=== PATIENT | male | born 1930 | race Caucasian/White ===

== ENCOUNTER 2022-01-30 07:28 | Inpatient (IN) | payer MEDICARE, BC ==
[~2022-01-30] VITALS: Ht 162.6 cm; Wt 50.3 kg
--- NOTE | 2022-01-30 07:36 | NUR ---
Dr Ross at the bedside for MSE.
[2022-01-30] MEDS ORDERED: ASPIRIN 325 MG TABLET PO ONE (07:45)
[2022-01-30] MEDS ORDERED: ALBUTEROL SULFATE 2.5 MG/ 0.5 ML NEBU NEB ONE (08:00)
[2022-01-30] MEDS ORDERED: IPRATROPIUM BROMIDE 0.5 MG/2.5 ML NEBU NEB ONE (08:00)
[2022-01-30] MEDS ORDERED: ASPIRIN 325 MG TABLET ONE (08:08)
[2022-01-30] MEDS ORDERED: ASPI81TA31 PO (08:21)
[2022-01-30] MEDS ORDERED: CRAN425C6 PO (08:21)
[2022-01-30] MEDS ORDERED: NICO-671 TP (08:21)
[2022-01-30] MEDS ORDERED: FERR325T28 PO (08:21)
[2022-01-30] MEDS ORDERED: NITR0.4T SL (08:21)
[2022-01-30] MEDS ORDERED: INSU100V7 SQ (08:21)
[2022-01-30] MEDS ORDERED: POLY17PO4 PO (08:21)
[2022-01-30] MEDS ORDERED: TAMS-3 PO (08:21)
[2022-01-30] MEDS ORDERED: METO-356 PO (08:21)
[2022-01-30] MEDS ORDERED: NA P133E RC (08:21)
[2022-01-30] MEDS ORDERED: INSU100C SQ (08:21)
[2022-01-30] MEDS ORDERED: ALBU0.63 NEB (08:21)
[2022-01-30] MEDS ORDERED: ATOR80TA PO (08:21)
[2022-01-30] MEDS ORDERED: BUDE10.2 INH (08:21)
[2022-01-30] MEDS ORDERED: MAGN400O6 PO (08:21)
[2022-01-30] MEDS ORDERED: ACET-2154 PO (08:21)
[2022-01-30] MEDS ORDERED: MULT-619 PO (08:21)
[2022-01-30] MEDS ORDERED: METF-440 PO (08:21)
[2022-01-30] MEDS ORDERED: BISA10SU61 RC (08:21)
[2022-01-30] MEDS ORDERED: ESCI5TAB PO (08:21)
[2022-01-30] MEDS ORDERED: INSU100V39 SQ (08:21)
[2022-01-30 08:32] LABS: HEMATOCRIT 37.1 % (36.7-47.1); MEAN CORPUSCULAR VOLUME 84.2 fL (73.0-96.2); PLATELET COUNT (AUTO) 513 K/uL (152-348)
[2022-01-30] MEDS ORDERED: ALBUTEROL SULFATE 1.25 MG/3 ML NEBU ONE (08:32)
[2022-01-30] MEDS ORDERED: IPRATROPIUM BROMIDE 0.5 MG/2.5 ML NEBU ONE (08:33)
[2022-01-30] MEDS ORDERED: ALBUTEROL SULFATE 2.5 MG/3 ML NEBU ONE (08:35)
[2022-01-30 08:58] LABS: CARBON DIOXIDE 17 mmol/L (21-32); CHLORIDE 110 mmol/L (98-107); CREATININE 1.1 mg/dL (0.6-1.3); GLUCOSE 87 mg/dL (74-106); POTASSIUM 3.3 mmol/L (3.5-5.1); UREA NITROGEN, BLOOD 32 mg/dL (7-18)
[2022-01-30 09:10] LABS: ALANINE AMINOTRANSFERASE 20 U/L (16-63); ALKALINE PHOSPHATASE 62 U/L (50-136); ASPARTATE AMINOTRANSFERASE 12 U/L (15-37); BILIRUBIN,DIRECT 0.1 mg/dL (0.0-0.2); BILIRUBIN,TOTAL 0.3 mg/dL (0.2-1.0); TOTAL PROTEIN, SERUM 5.8 g/dL (6.4-8.2)
[2022-01-30] MEDS ORDERED: IOHEXOL 350 100 ML INFUS..BTL ONE (09:24)
[2022-01-30] MEDS ORDERED: AZITHROMYCIN IV 500 MG in IV DEXTROSE 5% 250 ML IV ONE (09:30)
[2022-01-30] MEDS ORDERED: CEFTRIAXONE 1 G in IV DEXTROSE 5% 50 ML IV ONE (09:30)
[2022-01-30] MEDS ORDERED: MAGNESIUM SULFATE/D5W 0 ML ONE (09:36)
[2022-01-30] MEDS ORDERED: AZITHROMYCIN 500MG/ D5W 250ML IVPB **ER PYXIS ONLY IV ONE (09:38)
--- NOTE | 2022-01-30 10:28 | NUR ---
Pt back from Ct, resting in bed, denies chest pain at this time.
[2022-01-30] MEDS ORDERED: CEFTRIAXONE /D5W 50ML IVPB **ER PYXIS IV ONE (10:54)
--- NOTE | 2022-01-30 12:00 | NUR ---
Dr Price spoke to Er for tele admit.
[2022-01-30 13:22] LABS: *BILIRUBIN,URIN NEGATIVE (NEGATIVE); *BLOOD, URINE 2+ (NEGATIVE); *CLARITY,URINE CLOUDY (CLEAR); *COLOR,URINE YELLOW (YELLOW); *KETONES,URINE TRACE (NEGATIVE); *UROBILINOGEN,URINE 0.2 E.U./dl (NORMAL); LEUKOCYTE ESTERASE ,URINE 3+ (NEGATIVE); NITRITE, URINE POSITIVE (NEGATIVE); PH,URINE 5.5 (5.0-8.0); UGLUCOSE NEGATIVE (NEGATIVE)
[2022-01-30 13:51] LABS: BACTERIA,URINE MANY /HPF (NONE SEEN); SQUAMOUS EPITHELIAL CELL,UR FEW /HPF (NONE SEEN); WBC,URINE TNTC /HPF (0-3)
[2022-01-30] MEDS ORDERED: ONDANSETRON 4 MG/2 ML VIAL IV PRN (18:45)
[2022-01-30] MEDS ORDERED: MAGNESIUM HYDROXIDE 30 ML LIQUID UDC PO SCH (18:45)
[2022-01-30] MEDS ORDERED: ALBUTEROL SULFATE 2.5 MG/ 0.5 ML NEBU NEB PRN ×2 (18:45→19:00)
[2022-01-30] MEDS ORDERED: ACETAMINOPHEN 325 MG TABLET PO PRN (18:45)
[2022-01-30] MEDS ORDERED: FLEET ENEMA 133 ML BOTTLE RC PRN (18:45)
[2022-01-30] MEDS ORDERED: MORPHINE SULFATE 2 MG/1 ML DISP.SYRIN IV PRN (18:45)
[2022-01-30] MEDS ORDERED: DEXTROSE 50% 50 ML DISP.SYRIN IV PRN (19:00)
[2022-01-30] MEDS ORDERED: IPRATROPIUM BROMIDE 0.5 MG/2.5 ML NEBU NEB PRN (19:00)
--- NOTE | 2022-01-30 19:05 | NUR ---
Change of shift report from Bruna BIRD
--- NOTE | 2022-01-30 20:40 | NUR ---
Spoke with [facility]EL[facility] charge nurse Argelia BIRD, patient will be transfered to room 316
--- NOTE | 2022-01-30 20:51 | NUR ---
Dr Paredes at bedside, MSE in progress
[2022-01-30] MEDS ORDERED: Medication Not On Formulary EA (Escitalopram Oxalate (Lexapro) 1 TAB) PO SCH (21:00)
--- NOTE | 2022-01-30 21:14 | NUR ---
called 3rd floor to give report, Josefina BIRD will call back
--- NOTE | 2022-01-30 21:25 | NUR ---
Report given to Josefina BIRD.
--- NOTE | 2022-01-30 21:57 | NUR ---
Pt. admitted to TELE rm 316, under care of Dr. Paredes Belongs List completed Josefina RN aware og pt arrival.
[2022-01-30 22:10] VITALS: BP 114/67
[2022-01-30] MEDS: methylPREDNISolone SOD SUCC 40 MG/ML VIAL IV SCH (22:40)
[2022-01-30] MEDS: DOCUSATE SODIUM 100 MG CAPSULE PO SCH (22:41)
[2022-01-30] MEDS: TAMSULOSIN HCL 0.4 MG CAP.SR.24H PO SCH (22:41)
[2022-01-30] MEDS: ESCITALOPRAM OXALATE 10 MG TABLET PO SCH (22:41)
[2022-01-30] MEDS: BLOOD SUGAR DIAGNOSTIC 1 EACH STRIP VI SCH (22:52)
[2022-01-30] MEDS ORDERED: INSULIN GLARGINE,HUM 300 UNITS/3 ML CARTRIDGE SQ ONE (22:52)
[2022-01-30] MEDS: INSULIN REGULAR, HUMAN 300 UNIT/3 ML VIAL SQ PRN (22:54)
[2022-01-30] MEDS: INSULIN GLARGINE,HUM 300 UNITS/3 ML CARTRIDGE SQ SCH (22:57)
[2022-01-31 04:30] VITALS: BP 127/64
--- NOTE | 2022-01-31 05:57 | NUR ---
Admitted to Tele, SR on monitor. No distress noted. IV site intact. Denies SOB or chest pain at this time. Able to make needs known. States that he ambulates with walker or uses a wheelchair at home. All needs attended to. Will endorse to day shift.
[2022-01-31] MEDS: PANTOPRAZOLE SODIUM 40 MG TABLET.DR PO SCH (06:23)
[2022-01-31] MEDS: methylPREDNISolone SOD SUCC 40 MG/ML VIAL IV SCH ×2 (06:24→16:33)
[2022-01-31] MEDS: BLOOD SUGAR DIAGNOSTIC 1 EACH STRIP VI SCH ×4 (06:32→20:28)
[2022-01-31 07:31] LABS: HEMATOCRIT 35.9 % (36.7-47.1); MEAN CORPUSCULAR HEMOGLOBIN 26.9 uug (23.8-33.4); MEAN CORPUSCULAR VOLUME 83.3 fL (73.0-96.2); PLATELET COUNT (AUTO) 466 K/uL (152-348)
[2022-01-31 07:35] LABS: IRON, SERUM 23 ug/dL (50-175)
[2022-01-31 07:44] LABS: ALANINE AMINOTRANSFERASE 26 U/L (16-63); ALKALINE PHOSPHATASE 80 U/L (50-136); ASPARTATE AMINOTRANSFERASE 18 U/L (15-37); BILIRUBIN,TOTAL 0.3 mg/dL (0.2-1.0); CARBON DIOXIDE 19 mmol/L (21-32); CHLORIDE 100 mmol/L (98-107); CHOLESTEROL 87 mg/dL (<200); CREATININE 1.4 mg/dL (0.6-1.3); GLUCOSE 212 mg/dL (74-106); HDL CHOLESTEROL 43 mg/dL (40-60); MAGNESIUM 1.8 mg/dL (1.8-2.4); PHOSPHOROUS 4.3 mg/dL (2.5-4.9); POTASSIUM 4.8 mmol/L (3.5-5.1); THYROID STIMULATING HORMONE 0.828 mIU/mL (0.358-3.740); TOTAL PROTEIN, SERUM 7.2 g/dL (6.4-8.2); TRIGLYCERIDES 69 MG/DL (30-150); UREA NITROGEN, BLOOD 39 mg/dL (7-18)
[2022-01-31] MEDS: MULTIVIT, IRON, MIN NO. 8, FA TABLET PO SCH (08:49)
[2022-01-31] MEDS: ASPIRIN 81 MG TAB.CHEW PO SCH (08:49)
[2022-01-31] MEDS: METOPROLOL SUCCINATE XL 25 MG TAB.SR.24H PO SCH (08:53)
[2022-01-31] MEDS: CEFTRIAXONE 1 G in IV DEXTROSE 5% 50 ML IV SCH (08:53)
[2022-01-31] MEDS: INSULIN REGULAR, HUMAN 300 UNIT/3 ML VIAL SQ PRN ×4 (08:55→20:34)
[2022-01-31] MEDS ORDERED: MULTIVITAMINS W MINERALS PO SCH (09:00)
[2022-01-31] MEDS: FLUTICASONE/VILANTEROL 1 EACH BLST.W.DEV INH SCH (09:59)
[2022-01-31 16:20] VITALS: BP 113/57
[2022-01-31 20:00] VITALS: BP 102/44
[2022-01-31] MEDS: TAMSULOSIN HCL 0.4 MG CAP.SR.24H PO SCH (20:29)
[2022-01-31] MEDS: DOCUSATE SODIUM 100 MG CAPSULE PO SCH (20:29)
[2022-01-31] MEDS: INSULIN GLARGINE,HUM 300 UNITS/3 ML CARTRIDGE SQ SCH (20:29)
[2022-01-31] MEDS: ESCITALOPRAM OXALATE 10 MG TABLET PO SCH (20:29)
[2022-02-01 04:00] VITALS: BP 102/48
[2022-02-01] MEDS: PANTOPRAZOLE SODIUM 40 MG TABLET.DR PO SCH (06:04)
--- NOTE | 2022-02-01 06:04 | NUR ---
PATIENT NPO SINCE MIDNIGHT ORDERED FOR CT SCAN THIS MORNING.
[2022-02-01] MEDS: BLOOD SUGAR DIAGNOSTIC 1 EACH STRIP VI SCH ×4 (06:28→20:31)
--- NOTE | 2022-02-01 08:23 | NUR ---
Patient NPO. Medications not administered via PO due to NPO status for CT Scan.
[2022-02-01] MEDS: MULTIVIT, IRON, MIN NO. 8, FA TABLET PO SCH (08:24)
[2022-02-01] MEDS: METOPROLOL SUCCINATE XL 25 MG TAB.SR.24H PO SCH (08:24)
[2022-02-01] MEDS: ASPIRIN 81 MG TAB.CHEW PO SCH (08:24)
[2022-02-01] MEDS: CEFTRIAXONE 1 G in IV DEXTROSE 5% 50 ML IV SCH (08:24)
[2022-02-01] MEDS: FLUTICASONE/VILANTEROL 1 EACH BLST.W.DEV INH SCH (08:25)
[2022-02-01] MEDS: methylPREDNISolone SOD SUCC 40 MG/ML VIAL IV SCH ×2 (08:25→16:24)
[2022-02-01] MEDS ORDERED: IOHEXOL 300MG/ML 100 ML INFUS..BTL ONE (09:28)
[2022-02-01] MEDS ORDERED: SWABABLE VALVE TRANSFER SET EA MC ONE (09:28)
[2022-02-01] MEDS ORDERED: IV NORMAL SALINE 250 ML IV ONE (09:29)
[2022-02-01 11:05] LABS: MEAN CORPUSCULAR HEMOGLOBIN 26.9 uug (23.8-33.4); MEAN CORPUSCULAR VOLUME 83.8 fL (73.0-96.2); PLATELET COUNT (AUTO) 464 K/uL (152-348)
[2022-02-01 11:43] LABS: CARBON DIOXIDE 22 mmol/L (21-32); CHLORIDE 100 mmol/L (98-107); GLUCOSE 253 mg/dL (74-106); MAGNESIUM 1.8 mg/dL (1.8-2.4); PHOSPHOROUS 3.6 mg/dL (2.5-4.9); POTASSIUM 4.4 mmol/L (3.5-5.1); UREA NITROGEN, BLOOD 59 mg/dL (7-18)
[2022-02-01 11:55] VITALS: BP 129/52
[2022-02-01] MEDS: INSULIN REGULAR, HUMAN 300 UNIT/3 ML VIAL SQ PRN ×2 (12:15→16:29)
[2022-02-01 13:02] LABS: FERRITIN 1475 ng/mL (26-388)
[2022-02-01] MEDS: IV NS 1000 ML 1,000 ML IV PRN (14:41)
--- NOTE | 2022-02-01 14:59 | NUR ---
Per Dr. Paredes's order, to place patient on aggressive sliding scale.
[2022-02-01] MEDS ORDERED: DEXTROSE 50% 50 ML DISP.SYRIN IV PRN (15:15)
[2022-02-01] MEDS ORDERED: BLOOD SUGAR DIAGNOSTIC 1 EACH STRIP VI SCH (16:30)
[2022-02-01 16:36] VITALS: BP 122/49
[2022-02-01 20:00] VITALS: BP 113/66
[2022-02-01] MEDS: TAMSULOSIN HCL 0.4 MG CAP.SR.24H PO SCH (20:26)
[2022-02-01] MEDS: ESCITALOPRAM OXALATE 10 MG TABLET PO SCH (20:27)
[2022-02-01] MEDS: INSULIN GLARGINE,HUM 300 UNITS/3 ML CARTRIDGE SQ SCH (20:31)
[2022-02-01] MEDS: DOCUSATE SODIUM 100 MG CAPSULE PO SCH (20:36)
[2022-02-02] MEDS: IV NS 1000 ML 1,000 ML IV PRN (05:24)
[2022-02-02] MEDS: PANTOPRAZOLE SODIUM 40 MG TABLET.DR PO SCH (06:20)
[2022-02-02] MEDS: BLOOD SUGAR DIAGNOSTIC 1 EACH STRIP VI SCH ×4 (06:25→21:00)
--- NOTE | 2022-02-02 08:00 | NUR ---
awake alert and oriented, denies of pain, on room air, no distress noted, explained plan of care- verbalized understanding , call light within reach, needs attended
[2022-02-02] MEDS: INSULIN REGULAR, HUMAN 300 UNIT/3 ML VIAL SQ PRN ×3 (08:22→16:50)
[2022-02-02] MEDS: CEFTRIAXONE 1 G in IV DEXTROSE 5% 50 ML IV SCH (08:22)
[2022-02-02] MEDS: FLUTICASONE/VILANTEROL 1 EACH BLST.W.DEV INH SCH (08:23)
[2022-02-02] MEDS: ASPIRIN 81 MG TAB.CHEW PO SCH (08:25)
[2022-02-02] MEDS: methylPREDNISolone SOD SUCC 40 MG/ML VIAL IV SCH ×2 (08:25→16:50)
[2022-02-02] MEDS: MULTIVIT, IRON, MIN NO. 8, FA TABLET PO SCH (08:26)
[2022-02-02] MEDS: METOPROLOL SUCCINATE XL 25 MG TAB.SR.24H PO SCH (08:29)
[2022-02-02 10:19] LABS: HEMATOCRIT 28.6 % (36.7-47.1); MEAN CORPUSCULAR VOLUME 84.7 fL (73.0-96.2); PLATELET COUNT (AUTO) 388 K/uL (152-348)
[2022-02-02 10:25] LABS: CARBON DIOXIDE 18 mmol/L (21-32); CHLORIDE 104 mmol/L (98-107); CREATININE 1.7 mg/dL (0.6-1.3); GLUCOSE 247 mg/dL (74-106); POTASSIUM 4.3 mmol/L (3.5-5.1); UREA NITROGEN, BLOOD 68 mg/dL (7-18)
[2022-02-02 10:31] LABS: ALANINE AMINOTRANSFERASE 15 U/L (16-63); ALKALINE PHOSPHATASE 54 U/L (50-136); BILIRUBIN,TOTAL 0.2 mg/dL (0.2-1.0); MAGNESIUM 1.8 mg/dL (1.8-2.4)
[2022-02-02 10:41] LABS: ASPARTATE AMINOTRANSFERASE 13 U/L (15-37)
[2022-02-02 11:50] VITALS: BP 113/61
--- NOTE | 2022-02-02 12:57 | NUR ---
female visitor at bedside, lunch served
[2022-02-02] MEDS ORDERED: MAGNESIUM HYDROXIDE 30 ML LIQUID UDC PO PRN (14:09)
[2022-02-02 16:14] VITALS: BP 108/57
--- NOTE | 2022-02-02 18:15 | NUR ---
incontinent of large amount of black tarry stools,stool sent to lab for OB and informed Dr Corea, no distress noted, vss, needs attended and met, call light within reach
[2022-02-02 18:46] LABS: *OCCULT BLOOD STOOL POSITIVE (NEGATIVE)
--- NOTE | 2022-02-02 19:00 | NUR ---
had another large melena, cleaned and BP 95/41 HR 89- Dr Price informed with orders-keep pt npo and continue with accucheck and aggressisve sliding scale- report given to next shift RN
[2022-02-02 20:00] VITALS: BP 128/62
[2022-02-02] MEDS: INSULIN GLARGINE,HUM 300 UNITS/3 ML CARTRIDGE SQ SCH (21:00)
[2022-02-02] MEDS: TAMSULOSIN HCL 0.4 MG CAP.SR.24H PO SCH (21:45)
[2022-02-02] MEDS: DOCUSATE SODIUM 100 MG CAPSULE PO SCH (21:45)
[2022-02-02] MEDS ORDERED: ACETAMINOPHEN 650 MG SUPP.RECT RC PRN (21:45)
[2022-02-02] MEDS: ESCITALOPRAM OXALATE 10 MG TABLET PO SCH (21:46)
[2022-02-02] MEDS: PANTOPRAZOLE SODIUM 40 MG VIAL IV SCH (22:38)
[2022-02-02] MEDS: IV D5/ 0.9% NACL 1,000 ML IV PRN (22:46)
[2022-02-02] MEDS: INSULIN REGULAR, HUMAN 300 UNITS/3 ML VIAL SQ PRN (23:07)
[2022-02-03 04:00] VITALS: BP 115/54
[2022-02-03] MEDS: PANTOPRAZOLE SODIUM 40 MG TABLET.DR PO SCH (06:09)
--- NOTE | 2022-02-03 07:08 | NUR ---
SHIFT NOTE; RECEIVED PT FROM AM NURSE YAMILA PT DENIES PAIN THROUGHOUT THE SHIFT BUT MADE PT NPO AFTER SECOND LARGE MELANA PT HAS NOW D5NS INFUSING AT 70ML/HR AND NO SIGNS OF DISTRESS NOTED.
[2022-02-03] MEDS: BLOOD SUGAR DIAGNOSTIC 1 EACH STRIP VI SCH ×4 (07:44→21:00)
[2022-02-03] MEDS: INSULIN REGULAR, HUMAN 300 UNIT/3 ML VIAL SQ PRN ×4 (07:46→22:36)
[2022-02-03 08:06] LABS: *IMMUNOGLOBULIN G, SERUM 1092 mg/dL (603-1613); IMMUNOGLOBULIN M, SERUM 204 mg/dL (15-143)
[2022-02-03] MEDS: PANTOPRAZOLE SODIUM 40 MG VIAL IV SCH ×2 (08:56→21:33)
[2022-02-03] MEDS: methylPREDNISolone SOD SUCC 40 MG/ML VIAL IV SCH (08:58)
[2022-02-03] MEDS: ASPIRIN 81 MG TAB.CHEW PO SCH ×2 (09:00→09:06)
[2022-02-03] MEDS: MULTIVIT, IRON, MIN NO. 8, FA TABLET PO SCH ×2 (09:00→09:12)
[2022-02-03] MEDS: METOPROLOL SUCCINATE XL 25 MG TAB.SR.24H PO SCH (09:00)
[2022-02-03] MEDS: CEFTRIAXONE 1 G in IV DEXTROSE 5% 50 ML IV SCH (09:13)
[2022-02-03] MEDS: FLUTICASONE/VILANTEROL 1 EACH BLST.W.DEV INH SCH (09:17)
--- NOTE | 2022-02-03 09:30 | NUR ---
Patient wasn't administered PO meds due to NPO status. Wasn't administered Aspirin due to GI bleed.
[2022-02-03 10:08] LABS: HEMATOCRIT 22.7 % (36.7-47.1)
[2022-02-03 10:10] LABS: PLATELET COUNT (AUTO) 421 K/uL (152-348)
--- NOTE | 2022-02-03 11:00 | NUR ---
Patient had a bowel movement with dark blood as yesterday. Patient's Hgb is 7.1, Dr. Paredes informed.
[2022-02-03 12:03] VITALS: BP 121/53
[2022-02-03 12:06] LABS: A/G RATIO 0.8 (0.7-1.7); ALBUMIN 2.7 g/dL (2.9-4.4); ALPHA-1-GLOBULIN 0.3 g/dL (0.0-0.4); ALPHA-2-GLOBULIN 0.9 g/dL (0.4-1.0); BETA GLOBULIN 0.9 g/dL (0.7-1.3); GAMMA GLOBULIN 1.3 g/dL (0.4-1.8); GLOBULIN, TOTAL 3.4 g/dL (2.2-3.9); M-SPIKE Not Observed g/dL (Not Observed)
[2022-02-03 12:29] LABS: LYMPHOCYTES % (MANUAL) 16 % (20-40); MONOCYTES % (MANUAL) 6 % (2-10); NEUTROPHILS % (MANUAL) 78 % (42-75)
[2022-02-03 15:50] LABS: *BILIRUBIN,URIN NEGATIVE (NEGATIVE); *BLOOD, URINE 1+ (NEGATIVE); *CLARITY,URINE CLOUDY (CLEAR); *COLOR,URINE LIGHT YELLOW (YELLOW); *KETONES,URINE NEGATIVE (NEGATIVE); *UROBILINOGEN,URINE 0.2 E.U./dl (NORMAL); LEUKOCYTE ESTERASE ,URINE 3+ (NEGATIVE); NITRITE, URINE POSITIVE (NEGATIVE); PH,URINE 5.5 (5.0-8.0); UGLUCOSE NEGATIVE (NEGATIVE)
[2022-02-03 16:22] VITALS: BP 110/51
[2022-02-03 17:03] LABS: BACTERIA,URINE FEW /HPF (NONE SEEN); SQUAMOUS EPITHELIAL CELL,UR FEW /HPF (NONE SEEN); WBC,URINE 80-100 /HPF (0-3)
[2022-02-03] MEDS: IV D5/ 0.9% NACL 1,000 ML IV PRN (17:50)
[2022-02-03] MEDS ORDERED: ACETAMINOPHEN 325 MG TABLET PO ONE (18:00)
[2022-02-03] MEDS ORDERED: ACETAMINOPHEN 325 MG TABLET PO PRN (18:15)
[2022-02-03] MEDS ORDERED: MIDAZOLAM HCL 2 MG/2 ML VIAL ONE (20:30)
[2022-02-03] MEDS: ESCITALOPRAM OXALATE 10 MG TABLET PO SCH (21:00)
[2022-02-03] MEDS: DOCUSATE SODIUM 100 MG CAPSULE PO SCH (21:00)
[2022-02-03] MEDS: INSULIN GLARGINE,HUM 300 UNITS/3 ML CARTRIDGE SQ SCH (21:00)
--- NOTE | 2022-02-03 21:00 | NUR ---
REPORT FROM AM NURSE SALO PT IS ALERT AND ORIENTED X4 PT SIGNED CONSENT FOR EGD. PT WAS TAKEN DOWN FOR PROCEDURE AFTERWARDS PT HAS ORDERS FOR 2 UNITS OF BLOODS FOR HGB OF 7.1 .
[2022-02-03] MEDS: TAMSULOSIN HCL 0.4 MG CAP.SR.24H PO SCH (21:33)
[2022-02-03 22:15] VITALS: BP 114/39
[2022-02-03 23:01] VITALS: BP 99/25
[2022-02-03 23:16] VITALS: BP 117/44
[2022-02-04] VITALS (11 sets, daily range): BP systolic 94–132; BP diastolic 36–71
--- NOTE | 2022-02-04 05:39 | NUR ---
PT TOLERATED BOTH UNITS OF BLOOD NO SIGNS OF ADVERSE REACTION NOTED. SECOND UNIT WAS COMPLETE AT 0523 WILL ENDORSE TO AM NURSE
[2022-02-04] MEDS: BLOOD SUGAR DIAGNOSTIC 1 EACH STRIP VI SCH ×4 (06:28→21:00)
[2022-02-04 07:26] LABS: HEMATOCRIT 26.3 % (36.7-47.1); MEAN CORPUSCULAR HEMOGLOBIN 29.7 uug (23.8-33.4); MEAN CORPUSCULAR VOLUME 89.2 fL (73.0-96.2); PLATELET COUNT (AUTO) 263 K/uL (152-348)
[2022-02-04 07:43] LABS: CARBON DIOXIDE 19 mmol/L (21-32); CHLORIDE 111 mmol/L (98-107); CREATININE 1.9 mg/dL (0.6-1.3); GLUCOSE 133 mg/dL (74-106); PHOSPHOROUS 4.2 mg/dL (2.5-4.9); POTASSIUM 4.6 mmol/L (3.5-5.1)
[2022-02-04 08:11] LABS: UREA NITROGEN, BLOOD 80 mg/dL (7-18)
[2022-02-04] MEDS: methylPREDNISolone SOD SUCC 40 MG/ML VIAL IV SCH (09:14)
[2022-02-04] MEDS: MULTIVIT, IRON, MIN NO. 8, FA TABLET PO SCH (09:14)
[2022-02-04] MEDS: ASPIRIN 81 MG TAB.CHEW PO SCH (09:14)
[2022-02-04] MEDS: PANTOPRAZOLE SODIUM 40 MG VIAL IV SCH ×2 (09:14→23:21)
[2022-02-04] MEDS: METOPROLOL SUCCINATE XL 25 MG TAB.SR.24H PO SCH (09:14)
[2022-02-04] MEDS: FLUTICASONE/VILANTEROL 1 EACH BLST.W.DEV INH SCH (09:21)
[2022-02-04] MEDS: PIPERACILLIN SODIUM/TAZOBACTAM 3.375 G in IV DEXTROSE 5% 100 ML IV SCH ×2 (11:45→23:23)
[2022-02-04] MEDS ORDERED: PIPERACILLIN SODIUM/TAZOBACTAM 3.375 G in IV DEXTROSE 5% 50 ML IV SCH (14:00)
[2022-02-04] MEDS: INSULIN REGULAR, HUMAN 300 UNIT/3 ML VIAL SQ PRN (17:22)
[2022-02-04] MEDS ORDERED: PROPOFOL 200 MG/20 ML BOTTLE IV ONE (18:24)
[2022-02-04] MEDS: INSULIN GLARGINE,HUM 300 UNITS/3 ML CARTRIDGE SQ SCH (21:00)
[2022-02-04] MEDS: DOCUSATE SODIUM 100 MG CAPSULE PO SCH (23:19)
[2022-02-04] MEDS: ESCITALOPRAM OXALATE 10 MG TABLET PO SCH (23:20)
[2022-02-04] MEDS: TAMSULOSIN HCL 0.4 MG CAP.SR.24H PO SCH (23:20)
[2022-02-04] MEDS: INSULIN REGULAR, HUMAN 300 UNITS/3 ML VIAL SQ PRN (23:42)
[2022-02-05] MEDS: BLOOD SUGAR DIAGNOSTIC 1 EACH STRIP VI SCH ×4 (06:45→21:00)
--- NOTE | 2022-02-05 07:45 | NUR ---
RECEIVED PT ALERT AND ORIENTED X4 NO SIGNS OF RESPIRATORY DISTRESS NOT Addendum: 02/05/22 at 0751 by [facility]ISTRY [facility] INPATIENT RN1 RN NO SIGNS OF DISTRESS NOTED. PT HS BLOOD SUGAR IS 306 AND GAVE 35 UNITS OF LANTUS AND 8 UNIT OF HUMULIN R MEDICATION GIVEN ORDERED. PT HGB LEVEL IS 8.7 ELEVATED FROM 7.1 AND PT COLOR IS BETTER ON FACE NO SIGNS OF RESPIRATORY DISTRESS NOTED. . PT AM BLOOD SUGAR 117 NO COVERAGE REQUIRED FALL AND SAFETY REMAINS THROUGHOUT THE NIGHT.
[2022-02-05 08:13] LABS: HEMATOCRIT 23.3 % (36.7-47.1); MEAN CORPUSCULAR HEMOGLOBIN 30.3 uug (23.8-33.4); MEAN CORPUSCULAR VOLUME 89.8 fL (73.0-96.2); PLATELET COUNT (AUTO) 211 K/uL (152-348)
[2022-02-05 08:47] LABS: CARBON DIOXIDE 19 mmol/L (21-32); CHLORIDE 111 mmol/L (98-107); CREATININE 1.6 mg/dL (0.6-1.3); GLUCOSE 111 mg/dL (74-106); PHOSPHOROUS 3.3 mg/dL (2.5-4.9); POTASSIUM 4.6 mmol/L (3.5-5.1); UREA NITROGEN, BLOOD 49 mg/dL (7-18)
[2022-02-05] MEDS: methylPREDNISolone SOD SUCC 40 MG/ML VIAL IV SCH (08:50)
[2022-02-05] MEDS: ASPIRIN 81 MG TAB.CHEW PO SCH (08:50)
[2022-02-05] MEDS: PANTOPRAZOLE SODIUM 40 MG VIAL IV SCH ×2 (08:50→22:11)
[2022-02-05] MEDS: MULTIVIT, IRON, MIN NO. 8, FA TABLET PO SCH (08:50)
[2022-02-05] MEDS: FLUTICASONE/VILANTEROL 1 EACH BLST.W.DEV INH SCH (08:50)
[2022-02-05] MEDS: METOPROLOL SUCCINATE XL 25 MG TAB.SR.24H PO SCH (08:51)
[2022-02-05 09:00] LABS: MAGNESIUM 1.7 mg/dL (1.8-2.4)
[2022-02-05] MEDS: IV D5/ 0.9% NACL 1,000 ML IV PRN (09:00)
[2022-02-05] MEDS: PIPERACILLIN SODIUM/TAZOBACTAM 3.375 G in IV DEXTROSE 5% 100 ML IV SCH ×2 (09:01→22:11)
[2022-02-05] MEDS ORDERED: IV NS 1000 ML 1,000 ML IV PRN (09:15)
--- NOTE | 2022-02-05 10:00 | NUR ---
PT AOX4. NO ACUTE DISTRESS NOTED; NO PAIN NOTED; MD [facility].
[2022-02-05 12:00] VITALS: BP 143/41
[2022-02-05] MEDS: INSULIN REGULAR, HUMAN 300 UNIT/3 ML VIAL SQ PRN ×3 (12:06→22:14)
[2022-02-05 13:25] LABS: LYMPHOCYTES % (MANUAL) 13 % (20-40); METAMYELOCYTES % 1 % (0-1); MONOCYTES % (MANUAL) 7 % (2-10); NEUTROPHILS % (MANUAL) 79 % (42-75)
--- NOTE | 2022-02-05 14:05 | NUR ---
PT WILL BE DC [facility]GEL PER MD. PT WILL HAVE O2 THERAPY AT HOME; FAMILY NOTIFIED; REFERRED TO CM FOR ANY ADDITIONAL QUESTION REGARDING THE PLAN OF CARE AT HOME. F/U WITH WILBER PLASENCIA.
[2022-02-05 16:00] VITALS: BP 105/49
[2022-02-05 20:00] VITALS: BP 101/40
[2022-02-05 20:30] VITALS: BP 101/40
[2022-02-05] MEDS: INSULIN GLARGINE,HUM 300 UNITS/3 ML CARTRIDGE SQ SCH (21:00)
[2022-02-05] MEDS: ESCITALOPRAM OXALATE 10 MG TABLET PO SCH (22:02)
[2022-02-05] MEDS: TAMSULOSIN HCL 0.4 MG CAP.SR.24H PO SCH (22:02)
[2022-02-05] MEDS: DOCUSATE SODIUM 100 MG CAPSULE PO SCH (22:03)
[2022-02-06 04:27] VITALS: BP 120/50
--- NOTE | 2022-02-06 08:04 | NUR ---
SHIFT NOTE; RECEIVED PT ALERT AND ORIENTED X4 MEDICATION GIVEN ORDERED PT PULL OUT IV NOW HAS 20G IN LT ARM. TOLERATING WELL. PT HS BLOOD SUGAR IS 155 GAVE 2 UNITS OF R NO SIGNS OF DIABETIC REACTION NOTED. WILL CONTINUE TO MONITOR FOR SAFETY AND FALLS WILL ENDORSE TO AM NURSE.
[2022-02-06 08:13] LABS: MEAN CORPUSCULAR HEMOGLOBIN 30.2 uug (23.8-33.4); MEAN CORPUSCULAR VOLUME 91.2 fL (73.0-96.2); PLATELET COUNT (AUTO) 241 K/uL (152-348)
[2022-02-06 08:44] LABS: CARBON DIOXIDE 22 mmol/L (21-32); CHLORIDE 110 mmol/L (98-107); CREATININE 1.6 mg/dL (0.6-1.3); GLUCOSE 56 mg/dL (74-106); MAGNESIUM 1.7 mg/dL (1.8-2.4); PHOSPHOROUS 3.8 mg/dL (2.5-4.9); POTASSIUM 4.4 mmol/L (3.5-5.1); UREA NITROGEN, BLOOD 33 mg/dL (7-18)
[2022-02-06] MEDS: PANTOPRAZOLE SODIUM 40 MG VIAL IV SCH (08:44)
[2022-02-06] MEDS: FLUTICASONE/VILANTEROL 1 EACH BLST.W.DEV INH SCH (08:44)
[2022-02-06] MEDS: METOPROLOL SUCCINATE XL 25 MG TAB.SR.24H PO SCH (08:45)
[2022-02-06] MEDS: ASPIRIN 81 MG TAB.CHEW PO SCH (08:45)
[2022-02-06] MEDS: methylPREDNISolone SOD SUCC 40 MG/ML VIAL IV SCH (08:45)
[2022-02-06] MEDS: MULTIVIT, IRON, MIN NO. 8, FA TABLET PO SCH (08:45)
[2022-02-06] MEDS ORDERED: MAGNESIUM OXIDE 400 MG TABLET PO ONE ×2 (10:00→11:30)
[2022-02-06] MEDS: PIPERACILLIN SODIUM/TAZOBACTAM 3.375 G in IV DEXTROSE 5% 100 ML IV SCH (10:05)
[2022-02-06] MEDS: BLOOD SUGAR DIAGNOSTIC 1 EACH STRIP VI SCH ×3 (10:58→16:49)
[2022-02-06] MEDS: INSULIN REGULAR, HUMAN 300 UNIT/3 ML VIAL SQ PRN ×2 (11:02→16:50)
[2022-02-06] MEDS ORDERED: AMOX-430 PO ×2 (11:26→22:39)
[2022-02-06] MEDS ORDERED: METH4TAB3 PO ×2 (11:26→22:39)
[2022-02-06] MEDS ORDERED: PANT40TA2 PO ×2 (11:30→22:39)
[2022-02-06 12:20] VITALS: BP 141/48
--- NOTE | 2022-02-06 15:00 | NUR ---
PATIENT FINALLY DECIDED TO TRANSFER TO ARU, AND NOT GO HOME TODAY.
[2022-02-06 16:09] VITALS: BP 106/41
--- NOTE | 2022-02-06 17:30 | NUR ---
DISCHARGED FROM MED/SURG, AND BEING ADMITTED TO ARU TONIGHT.
[2022-02-06] MEDS ORDERED: FERR325T28 PO (22:39)
[2022-02-06] MEDS ORDERED: ESCI5TAB PO (22:39)
[2022-02-06] MEDS ORDERED: ACET-2154 PO (22:39)
[2022-02-06] MEDS ORDERED: MULT-594 PO (22:39)
[2022-02-06] MEDS ORDERED: ATOR80TA PO (22:39)
[2022-02-06] MEDS ORDERED: ASPI81TA31 PO (22:39)
[2022-02-06] MEDS ORDERED: BISA10SU61 RC (22:39)
[2022-02-06] MEDS ORDERED: ALBU0.63 IH (22:39)
[2022-02-06] MEDS ORDERED: METO-356 PO (22:39)
[2022-02-07] MEDS ORDERED: predniSONE 20 MG TABLET PO SCH (08:00)
[2022-02-10] MEDS ORDERED: CEFTRIAXONE 1 G in IV DEXTROSE 5% 50 ML IV SCH (11:00)
== END 2022-02-06 17:50 | DRG 871 ==
LOC: ER 07:28 → TELE3 21:21 → MEDSURG3 01-31 09:15
PROVIDERS: ADMIT Internal Medicine; ATTEND Nurse Practitioner Acute Care
PROC: 0W3P8ZZ Control Bleeding in Gastrointestinal Tract, Via Natural or Artificial Opening Endoscopic (ICD-10-PCS; principal; 2022-02-03)
PROC: 0DB68ZX Excision of Stomach, Via Natural or Artificial Opening Endoscopic, Diagnostic (ICD-10-PCS; 2022-02-03)
PROC: 30233N1 Transfusion of Nonautologous Red Blood Cells into Peripheral Vein, Percutaneous Approach (ICD-10-PCS; 2022-02-03)
DX: A41.9 Sepsis, unspecified organism (principal); E43 Unspecified severe protein-calorie malnutrition; K26.4 Chronic or unspecified duodenal ulcer with hemorrhage; N17.0 Acute kidney failure with tubular necrosis; N39.0 Urinary tract infection, site not specified; D68.59 Other primary thrombophilia; E87.1 Hypo-osmolality and hyponatremia; J44.1 Chronic obstructive pulmonary disease with (acute) exacerbation; Z68.1 Body mass index [BMI] 19.9 or less, adult; D62 Acute posthemorrhagic anemia; R91.8 Other nonspecific abnormal finding of lung field; D75.839 Thrombocytosis, unspecified; E78.5 Hyperlipidemia, unspecified; I12.9 Hypertensive chronic kidney disease with stage 1 through stage 4 chronic kidney disease, or unspecified chronic kidney disease; K21.9 Gastro-esophageal reflux disease without esophagitis; K29.70 Gastritis, unspecified, without bleeding; Z95.5 Presence of coronary angioplasty implant and graft; Z90.79 Acquired absence of other genital organ(s); Z20.822 Contact with and (suspected) exposure to COVID-19; I25.10 Atherosclerotic heart disease of native coronary artery without angina pectoris; I25.2 Old myocardial infarction; E11.22 Type 2 diabetes mellitus with diabetic chronic kidney disease; E87.6 Hypokalemia; R62.7 Adult failure to thrive; M19.90 Unspecified osteoarthritis, unspecified site; Z74.09 Other reduced mobility; D72.829 Elevated white blood cell count, unspecified; D50.9 Iron deficiency anemia, unspecified; J40 Bronchitis, not specified as acute or chronic; N18.9 Chronic kidney disease, unspecified; I71.4 Abdominal aortic aneurysm, without rupture; F32.9 Major depressive disorder, single episode, unspecified; E11.51 Type 2 diabetes mellitus with diabetic peripheral angiopathy without gangrene; E11.65 Type 2 diabetes mellitus with hyperglycemia; K57.90 Diverticulosis of intestine, part unspecified, without perforation or abscess without bleeding; N40.1 Benign prostatic hyperplasia with lower urinary tract symptoms; Z79.82 Long term (current) use of aspirin; Z87.891 Personal history of nicotine dependence; Z87.440 Personal history of urinary (tract) infections; Z79.4 Long term (current) use of insulin; K76.0 Fatty (change of) liver, not elsewhere classified; R93.1 Abnormal findings on diagnostic imaging of heart and coronary circulation; Z79.84 Long term (current) use of oral hypoglycemic drugs; K80.20 Calculus of gallbladder without cholecystitis without obstruction
CPT/HCPCS: 36415; 70030-TC; 71045; 71275; 82378; 82747; 82784; 83550; 83605; 83735; 84100; 84153; 84155; 84165; 84443; 84484; 85014; 85025; 86334; 86850; 86900; 86901; 86920; 87040; 87086; 93005; 93307; A4663; C9113; G0378; J0456; J0696; J1815; J2250; J2543; J2920; J3475; J3490; J3590; J7040; J7042; P9016; Q9967

== ENCOUNTER 2022-02-06 18:41 | Inpatient (IN) | payer MEDICARE, BC ==
[~2022-02-06] VITALS: Ht 160 cm; Wt 49.4 kg
[~2022-02-06 18:41] MED LIST: ACET-2154 PO; ALBU0.63 NEB; AMOX-430 PO; ASPI81TA31 PO; ATOR80TA PO; BISA10SU61 RC; BUDE10.2 INH; CRAN425C6 PO; ESCI5TAB PO; FERR325T28 PO; INSU100C SQ; INSU100V39 SQ; INSU100V7 SQ; MAGN400O6 PO; METF-440 PO; METH4TAB3 PO; METO-356 PO; MULT-619 PO; NA P133E RC; NICO-671 TP; NITR0.4T SL; PANT40TA2 PO; POLY17PO4 PO; TAMS-3 PO
[2022-02-06 20:00] VITALS: BP 124/47
[2022-02-06] MEDS ORDERED: REMEDY ESSENTIAL ZINC PASTE 113 GM TOP PRN (20:15)
[2022-02-06] MEDS ORDERED: MULT-594 PO (22:39)
[2022-02-06] MEDS ORDERED: ATOR80TA PO (22:39)
[2022-02-06] MEDS ORDERED: ASPI81TA31 PO (22:39)
[2022-02-06] MEDS ORDERED: ACET-2154 PO (22:39)
[2022-02-06] MEDS ORDERED: BISA10SU61 RC (22:39)
[2022-02-06] MEDS ORDERED: FERR325T28 PO (22:39)
[2022-02-06] MEDS ORDERED: ESCI5TAB PO (22:39)
[2022-02-06] MEDS ORDERED: ALBU0.63 IH (22:39)
[2022-02-06] MEDS ORDERED: METO-356 PO (22:39)
[2022-02-06] MEDS ORDERED: PANT40TA2 PO (22:39)
[2022-02-06] MEDS ORDERED: METH4TAB3 PO (22:39)
[2022-02-06] MEDS ORDERED: AMOX-430 PO (22:39)
[2022-02-06] MEDS ORDERED: DEXTROSE 50% 50 ML DISP.SYRIN IV PRN (23:45)
[2022-02-06] MEDS ORDERED: NITROGLYCERIN 0.4 MG/TAB BOTTLE SL PRN (23:45)
[2022-02-06] MEDS ORDERED: BISACODYL 10 MG SUPP.RECT RC PRN (23:45)
[2022-02-06] MEDS ORDERED: methylPREDNISolone 1 PACK TAB.DS.PK [4MG TAB] PO SCH (23:45)
[2022-02-06] MEDS ORDERED: MAGNESIUM HYDROXIDE 30 ML LIQUID UDC PO PRN (23:45)
[2022-02-07] MEDS ORDERED: ACETAMINOPHEN 325 MG TABLET PO PRN (00:15)
[2022-02-07] MEDS ORDERED: ALBUTEROL SULFATE 2.5 MG/3 ML NEBU NEB PRN (00:30)
[2022-02-07] MEDS: BLOOD SUGAR DIAGNOSTIC 1 EACH STRIP VI SCH ×5 (00:44→21:53)
[2022-02-07] MEDS: INSULIN REGULAR, HUMAN 300 UNITS/3 ML VIAL SQ PRN ×2 (00:49→21:54)
[2022-02-07] MEDS: NICOTINE 7 MG/24HR PATCH TD SCH ×2 (00:52→09:35)
--- NOTE | 2022-02-07 01:43 | NUR ---
Received a 89 yr old male admitted from [facility] to rehab with an admitting diagnosis of generalized weakness, deconditioning and COPD. AAOx4 Needs attended. VSS. No acute distress noted Fall precautions maintained. Tolerated po meds well. Patient has Hx CAD, Depression, Iron deficiency Anemia, TURP, BPH, Dyslipidemia, Stents, DM (+) former smoker.Skin intact. Incontinent of bowel and bladder. BM noted this shift (loose ) Will monitor patient.
[2022-02-07 04:00] VITALS: BP 122/53
[2022-02-07] MEDS: PANTOPRAZOLE SODIUM 40 MG TABLET.DR PO SCH (06:17)
[2022-02-07] MEDS ORDERED: methylPREDNISolone 4 MG TABLET (DAY#1, ACB) PO ONE (07:30)
[2022-02-07] MEDS ORDERED: INSULIN LISPRO 1000 UNITS/10 ML VIAL(HUMALOG) SQ SCH (07:30)
[2022-02-07 08:00] VITALS: BP 103/53
[2022-02-07] MEDS ORDERED: Medication Not On Formulary EA (Cranberry Extract (Cranberry) 425 MG) PO SCH (09:00)
[2022-02-07] MEDS: FERROUS SULFATE 325 MG TABEC PO SCH (09:34)
[2022-02-07] MEDS: TAMSULOSIN HCL 0.4 MG CAP.SR.24H PO SCH (09:34)
[2022-02-07] MEDS: AMOXICILLIN-CLAVUL 875-125MG TABLET PO SCH ×2 (09:34→17:25)
[2022-02-07] MEDS: MIRALAX 17 GM POWD.PACK PO SCH (09:35)
[2022-02-07] MEDS: ASPIRIN 81 MG TAB.CHEW PO SCH (09:35)
[2022-02-07] MEDS: METOPROLOL SUCCINATE XL 25 MG TAB.SR.24H PO SCH (09:35)
[2022-02-07 10:05] LABS: HEMATOCRIT 25.2 % (36.7-47.1); MEAN CORPUSCULAR VOLUME 92.2 fL (73.0-96.2); PLATELET COUNT (AUTO) 279 K/uL (152-348)
[2022-02-07 10:14] LABS: CARBON DIOXIDE 23 mmol/L (21-32); CHLORIDE 104 mmol/L (98-107); CREATININE 1.7 mg/dL (0.6-1.3); GLUCOSE 263 mg/dL (74-106); POTASSIUM 4.4 mmol/L (3.5-5.1); UREA NITROGEN, BLOOD 26 mg/dL (7-18)
[2022-02-07] MEDS: FLUTICASONE/VILANTEROL 1 EACH BLST.W.DEV INH SCH (11:13)
[2022-02-07] MEDS: INSULIN LISPRO 1000 UNITS/10 ML VIAL(HUMALOG) SQ SCH ×2 (11:44→16:51)
[2022-02-07 12:00] VITALS: BP 105/48
[2022-02-07] MEDS ORDERED: methylPREDNISolone 4 MG TABLET (DAY#1, PC LUNCH) PO ONE (12:30)
[2022-02-07 16:00] VITALS: BP 103/44
[2022-02-07] MEDS ORDERED: methylPREDNISolone 4 MG TABLET (DAY#1, PC DINNER) PO ONE (17:30)
--- NOTE | 2022-02-07 17:37 | NUR ---
Patient alert and oriented, able to communicate simple needs and follow directions. Due medication administered as scheduled/ordered by MD. No ASE noted. Patient eating and drinking well. On BS checks with insulin coverage as ordered. No s/s of hypo/hyperglycemia noted. Assisted patient with ADLs and as needed. All needs anticipated and met.
[2022-02-07 20:00] VITALS: BP 100/48
[2022-02-07] MEDS ORDERED: methylPREDNISolone 4 MG TABLET (DAY#1, HS) PO ONE (21:00)
[2022-02-07] MEDS: ESCITALOPRAM OXALATE 10 MG TABLET PO SCH (21:51)
[2022-02-07] MEDS: ATORVASTATIN 40 MG TABLET PO SCH (21:52)
[2022-02-07] MEDS: INSULIN GLARGINE,HUM 300 UNITS/3 ML CARTRIDGE SQ SCH (21:53)
[2022-02-08 04:00] VITALS: BP 95/43
[2022-02-08] MEDS: PANTOPRAZOLE SODIUM 40 MG TABLET.DR PO SCH (06:33)
--- NOTE | 2022-02-08 07:15 | NUR ---
0715-Rec'd patient in bed, awake, no respiratory distress noted on R/A and jerald. well. Patient denies pain. Call light at reach, safety precautions in place. Bedside table and needed items accessible.
[2022-02-08] MEDS ORDERED: methylPREDNISolone 4 MG TABLET (DAY#2, ACB) PO ONE (07:30)
[2022-02-08] MEDS: BLOOD SUGAR DIAGNOSTIC 1 EACH STRIP VI SCH ×4 (07:47→21:22)
[2022-02-08] MEDS: INSULIN LISPRO 1000 UNITS/10 ML VIAL(HUMALOG) SQ SCH ×3 (07:52→16:29)
[2022-02-08 07:53] VITALS: BP 127/68
[2022-02-08 08:28] LABS: CARBON DIOXIDE 25 mmol/L (21-32); CHLORIDE 105 mmol/L (98-107); CREATININE 1.4 mg/dL (0.6-1.3); GLUCOSE 89 mg/dL (74-106); MAGNESIUM 1.7 mg/dL (1.8-2.4); PHOSPHOROUS 2.4 mg/dL (2.5-4.9); POTASSIUM 4.1 mmol/L (3.5-5.1); UREA NITROGEN, BLOOD 24 mg/dL (7-18)
[2022-02-08 08:33] LABS: HEMATOCRIT 26.7 % (36.7-47.1); MEAN CORPUSCULAR HEMOGLOBIN 29.9 uug (23.8-33.4); MEAN CORPUSCULAR VOLUME 90.6 fL (73.0-96.2); PLATELET COUNT (AUTO) 290 K/uL (152-348)
[2022-02-08] MEDS: AMOXICILLIN-CLAVUL 875-125MG TABLET PO SCH ×2 (08:35→17:14)
[2022-02-08] MEDS: FLUTICASONE/VILANTEROL 1 EACH BLST.W.DEV INH SCH (08:35)
[2022-02-08] MEDS: TAMSULOSIN HCL 0.4 MG CAP.SR.24H PO SCH (08:35)
[2022-02-08] MEDS: METOPROLOL SUCCINATE XL 25 MG TAB.SR.24H PO SCH (08:36)
[2022-02-08] MEDS: ASPIRIN 81 MG TAB.CHEW PO SCH (08:36)
[2022-02-08] MEDS: FERROUS SULFATE 325 MG TABEC PO SCH (08:36)
[2022-02-08] MEDS: MIRALAX 17 GM POWD.PACK PO SCH (08:45)
[2022-02-08] MEDS: NICOTINE 7 MG/24HR PATCH TD SCH (08:46)
[2022-02-08] MEDS ORDERED: MAGNESIUM OXIDE 400 MG TABLET PO ONE (11:00)
[2022-02-08] MEDS: INSULIN REGULAR, HUMAN 300 UNIT/3 ML VIAL SQ PRN ×2 (12:23→16:27)
[2022-02-08] MEDS ORDERED: methylPREDNISolone 4 MG TABLET (DAY#2, PC LUNCH) PO ONE (12:30)
--- NOTE | 2022-02-08 12:30 | NUR ---
Continues on FS for BS checks w/ S/S coverage, no S/S of hypo/hyperglycemia, patient eating and drinking well. No c/o pain, no changes in condition noted; assisted to the bathroom as needed/routine intervals.
[2022-02-08 15:56] VITALS: BP 119/55
[2022-02-08] MEDS ORDERED: NEUTRA PHOS PACKET PO ONE (16:00)
[2022-02-08] MEDS ORDERED: methylPREDNISolone 4 MG TABLET (DAY#, PC DINNER) PO ONE (17:30)
--- NOTE | 2022-02-08 18:37 | NUR ---
1630-Patient's FS BS reading= 412 at this time, patient asymptomatic for hyperglycemia, Patient denies blurred vision, feeling tired or weak, denies feeling thirsty. Insulin coverage administered as per SS Humulin and in addition 6 units of Humalog as scheduled. As per orders instructions to notify MD if BS>400. Notified Adrienne Salcedo of BS readings and patient sucking on hard candy SF often, per Adrienne to notify her promptly if further/continues abnormal readings for proper interventions. Endorsed to relieving licensed nurse for proper follow up.
[2022-02-08 20:24] VITALS: BP 100/51
[2022-02-08] MEDS ORDERED: methylPREDNISolone 4 MG TABLET (DAY#2, HS) PO ONE (21:00)
[2022-02-08] MEDS: ESCITALOPRAM OXALATE 10 MG TABLET PO SCH (21:15)
[2022-02-08] MEDS: ATORVASTATIN 40 MG TABLET PO SCH (21:16)
[2022-02-08] MEDS: INSULIN GLARGINE,HUM 300 UNITS/3 ML CARTRIDGE SQ SCH (21:24)
[2022-02-09 04:00] VITALS: BP 132/61
[2022-02-09] MEDS: PANTOPRAZOLE SODIUM 40 MG TABLET.DR PO SCH (06:25)
[2022-02-09] MEDS: BLOOD SUGAR DIAGNOSTIC 1 EACH STRIP VI SCH ×4 (06:37→20:56)
[2022-02-09 07:04] LABS: HEMATOCRIT 27.1 % (36.7-47.1); MEAN CORPUSCULAR HEMOGLOBIN 30.1 uug (23.8-33.4); MEAN CORPUSCULAR VOLUME 91.4 fL (73.0-96.2); PLATELET COUNT (AUTO) 354 K/uL (152-348)
[2022-02-09] MEDS ORDERED: methylPREDNISolone 4 MG TABLET (DAY#3, ACB) PO ONE (07:30)
[2022-02-09] MEDS: INSULIN LISPRO 1000 UNITS/10 ML VIAL(HUMALOG) SQ SCH ×3 (07:41→16:27)
[2022-02-09] MEDS: INSULIN REGULAR, HUMAN 300 UNIT/3 ML VIAL SQ PRN ×3 (07:42→16:29)
[2022-02-09 07:46] LABS: ALANINE AMINOTRANSFERASE 34 U/L (16-63); ALKALINE PHOSPHATASE 73 U/L (50-136); ASPARTATE AMINOTRANSFERASE 12 U/L (15-37); BILIRUBIN,TOTAL 0.3 mg/dL (0.2-1.0); CARBON DIOXIDE 25 mmol/L (21-32); CHLORIDE 102 mmol/L (98-107); CREATININE 1.4 mg/dL (0.6-1.3); POTASSIUM 4.8 mmol/L (3.5-5.1); TOTAL PROTEIN, SERUM 6.2 g/dL (6.4-8.2); UREA NITROGEN, BLOOD 26 mg/dL (7-18)
[2022-02-09 08:03] LABS: GLUCOSE 346 mg/dL (74-106)
[2022-02-09] MEDS: TAMSULOSIN HCL 0.4 MG CAP.SR.24H PO SCH (08:22)
[2022-02-09] MEDS: ASPIRIN 81 MG TAB.CHEW PO SCH (08:22)
[2022-02-09] MEDS: AMOXICILLIN-CLAVUL 875-125MG TABLET PO SCH ×2 (08:22→17:25)
[2022-02-09] MEDS: FERROUS SULFATE 325 MG TABEC PO SCH (08:22)
[2022-02-09] MEDS: FLUTICASONE/VILANTEROL 1 EACH BLST.W.DEV INH SCH (08:23)
[2022-02-09] MEDS: METOPROLOL SUCCINATE XL 25 MG TAB.SR.24H PO SCH (08:23)
[2022-02-09] MEDS: MIRALAX 17 GM POWD.PACK PO SCH (08:23)
[2022-02-09] MEDS: NICOTINE 7 MG/24HR PATCH TD SCH (08:23)
[2022-02-09 08:56] VITALS: BP 117/56
--- NOTE | 2022-02-09 08:57 | NUR ---
INDIVIDUALIZED PLAN OF CARE
--- NOTE | 2022-02-09 10:26 | NUR ---
per lab flocytometry lab can be only done Thursday through Thursday.
[2022-02-09] MEDS ORDERED: methylPREDNISolone 4 MG TABLET (DAY#3, PC LUNCH) PO ONE (12:30)
[2022-02-09 16:47] VITALS: BP 110/53
[2022-02-09] MEDS: GLUCERNA SHAKE 237 ML CAN PO SCH (17:25)
[2022-02-09] MEDS ORDERED: methylPREDNISolone 4 MG TABLET (DAY#3, PC DINNER) PO ONE (17:30)
--- NOTE | 2022-02-09 18:29 | NUR ---
no events noted during shift
[2022-02-09 20:00] VITALS: BP 109/50
[2022-02-09] MEDS: ESCITALOPRAM OXALATE 10 MG TABLET PO SCH (20:55)
[2022-02-09] MEDS: ATORVASTATIN 40 MG TABLET PO SCH (20:55)
[2022-02-09] MEDS: INSULIN GLARGINE,HUM 300 UNITS/3 ML CARTRIDGE SQ SCH (20:58)
[2022-02-09] MEDS: INSULIN REGULAR, HUMAN 300 UNITS/3 ML VIAL SQ PRN (21:00)
[2022-02-09] MEDS ORDERED: methylPREDNISolone 4 MG TABLET (DAY#3, HS) PO ONE (21:00)
[2022-02-10 04:00] VITALS: BP 125/50
[2022-02-10] MEDS: PANTOPRAZOLE SODIUM 40 MG TABLET.DR PO SCH (06:52)
[2022-02-10] MEDS: BLOOD SUGAR DIAGNOSTIC 1 EACH STRIP VI SCH ×4 (06:53→20:45)
[2022-02-10] MEDS ORDERED: methylPREDNISolone 4 MG TABLET (DAY#4, ACB) PO ONE (07:30)
[2022-02-10 07:34] VITALS: BP 124/58
[2022-02-10] MEDS: INSULIN LISPRO 1000 UNITS/10 ML VIAL(HUMALOG) SQ SCH ×3 (07:47→17:09)
[2022-02-10] MEDS: GLUCERNA SHAKE 237 ML CAN PO SCH ×2 (08:28→17:02)
[2022-02-10] MEDS: FERROUS SULFATE 325 MG TABEC PO SCH (08:40)
[2022-02-10] MEDS: TAMSULOSIN HCL 0.4 MG CAP.SR.24H PO SCH (08:40)
[2022-02-10] MEDS: ASPIRIN 81 MG TAB.CHEW PO SCH (08:40)
[2022-02-10] MEDS: AMOXICILLIN-CLAVUL 875-125MG TABLET PO SCH ×2 (08:40→17:13)
[2022-02-10] MEDS: METOPROLOL SUCCINATE XL 25 MG TAB.SR.24H PO SCH (08:44)
[2022-02-10] MEDS: FLUTICASONE/VILANTEROL 1 EACH BLST.W.DEV INH SCH (08:44)
[2022-02-10] MEDS: MIRALAX 17 GM POWD.PACK PO SCH (08:44)
[2022-02-10] MEDS: NICOTINE 7 MG/24HR PATCH TD SCH (08:45)
[2022-02-10] MEDS ORDERED: methylPREDNISolone 4 MG TABLET (DAY#4, PC LUNCH) PO ONE (12:30)
[2022-02-10 16:00] VITALS: BP 120/61
[2022-02-10] MEDS: INSULIN REGULAR, HUMAN 300 UNIT/3 ML VIAL SQ PRN (17:10)
[2022-02-10 20:00] VITALS: BP 110/51
[2022-02-10] MEDS: ATORVASTATIN 40 MG TABLET PO SCH (20:43)
[2022-02-10] MEDS: ESCITALOPRAM OXALATE 10 MG TABLET PO SCH (20:43)
[2022-02-10] MEDS: INSULIN GLARGINE,HUM 300 UNITS/3 ML CARTRIDGE SQ SCH (20:47)
[2022-02-10] MEDS: INSULIN REGULAR, HUMAN 300 UNITS/3 ML VIAL SQ PRN (20:48)
[2022-02-10] MEDS ORDERED: methylPREDNISolone 4 MG TABLET (DAY#4, HS) PO ONE (21:00)
[2022-02-11 04:00] VITALS: BP 115/62
[2022-02-11] MEDS: PANTOPRAZOLE SODIUM 40 MG TABLET.DR PO SCH (05:38)
[2022-02-11] MEDS: BLOOD SUGAR DIAGNOSTIC 1 EACH STRIP VI SCH ×4 (05:53→20:35)
--- NOTE | 2022-02-11 05:54 | NUR ---
FBS 68mg/d. Denies any s/s of hypoglycemia. [place] juice provided. Will recheck.
--- NOTE | 2022-02-11 06:30 | NUR ---
Shift End Report: VS stable. Slept good. All needs attended and anticipated. No significant event reported all night. Safety measures and fall prevention maintained. Continue current rehab plan of care.
[2022-02-11 06:55] LABS: HEMATOCRIT 28.5 % (36.7-47.1); MEAN CORPUSCULAR HEMOGLOBIN 29.7 uug (23.8-33.4); MEAN CORPUSCULAR VOLUME 90.5 fL (73.0-96.2); PLATELET COUNT (AUTO) 437 K/uL (152-348)
--- NOTE | 2022-02-11 07:03 | NUR ---
Blood sugar rechecked 117mg/dl. Will endorsed accordingly.
[2022-02-11 07:11] LABS: CARBON DIOXIDE 28 mmol/L (21-32); CHLORIDE 102 mmol/L (98-107); CREATININE 1.4 mg/dL (0.6-1.3); GLUCOSE 138 mg/dL (74-106); MAGNESIUM 1.6 mg/dL (1.8-2.4); PHOSPHOROUS 3.7 mg/dL (2.5-4.9); POTASSIUM 4.3 mmol/L (3.5-5.1); UREA NITROGEN, BLOOD 30 mg/dL (7-18)
[2022-02-11] MEDS: INSULIN LISPRO 1000 UNITS/10 ML VIAL(HUMALOG) SQ SCH ×3 (07:30→16:26)
[2022-02-11] MEDS ORDERED: methylPREDNISolone 4 MG TABLET (DAY#5, ACB) PO ONE (07:30)
[2022-02-11 07:33] VITALS: BP 127/70
--- NOTE | 2022-02-11 07:36 | NUR ---
patient refused his morning dose of medrol and lispro insulin, risks and benefits explained, patient verbalized understanding of it, no distress noted.
[2022-02-11] MEDS: ASPIRIN 81 MG TAB.CHEW PO SCH (08:43)
[2022-02-11] MEDS: AMOXICILLIN-CLAVUL 875-125MG TABLET PO SCH ×2 (08:43→16:25)
[2022-02-11] MEDS: METOPROLOL SUCCINATE XL 25 MG TAB.SR.24H PO SCH (08:44)
[2022-02-11] MEDS: TAMSULOSIN HCL 0.4 MG CAP.SR.24H PO SCH (08:44)
[2022-02-11] MEDS: MIRALAX 17 GM POWD.PACK PO SCH (08:44)
[2022-02-11] MEDS: NICOTINE 7 MG/24HR PATCH TD SCH (08:44)
[2022-02-11] MEDS: FERROUS SULFATE 325 MG TABEC PO SCH (08:44)
[2022-02-11] MEDS: GLUCERNA SHAKE 237 ML CAN PO SCH ×2 (08:45→16:13)
[2022-02-11] MEDS: FLUTICASONE/VILANTEROL 1 EACH BLST.W.DEV INH SCH (08:49)
[2022-02-11] MEDS ORDERED: MAGNESIUM SULFATE/D5W 100 ML IV SCH (10:00)
[2022-02-11] MEDS: INSULIN REGULAR, HUMAN 300 UNIT/3 ML VIAL SQ PRN (11:06)
[2022-02-11] MEDS ORDERED: MAGNESIUM OXIDE 400 MG TABLET PO ONE (12:00)
[2022-02-11 15:35] VITALS: BP 114/58
--- NOTE | 2022-02-11 16:26 | NUR ---
patient refused his lispro insulin, stated he does not need it, risks and benefits explained, patient verbalized understanding of it, no acute distress noted
[2022-02-11 20:00] VITALS: BP 108/66
[2022-02-11] MEDS: ESCITALOPRAM OXALATE 10 MG TABLET PO SCH (20:24)
[2022-02-11] MEDS: ATORVASTATIN 40 MG TABLET PO SCH (20:24)
[2022-02-11] MEDS: INSULIN REGULAR, HUMAN 300 UNITS/3 ML VIAL SQ PRN (20:37)
[2022-02-11] MEDS: INSULIN GLARGINE,HUM 300 UNITS/3 ML CARTRIDGE SQ SCH (20:37)
[2022-02-11] MEDS ORDERED: methylPREDNISolone 4 MG TABLET (DAY#5, HS) PO ONE (21:00)
[2022-02-12] MEDS: PANTOPRAZOLE SODIUM 40 MG TABLET.DR PO SCH (06:05)
[2022-02-12] MEDS: BLOOD SUGAR DIAGNOSTIC 1 EACH STRIP VI SCH ×4 (06:09→20:15)
--- NOTE | 2022-02-12 06:22 | NUR ---
Shift End Report: Blood sugar WNL. No s/s of hypo/hyperglycemia. No complaint presented all night. Had watery stools in moderate to small amount. Good skin/perineal care rendered. All needs attended and met. No significant event reported all night. Continue current rehab plan of care.
[2022-02-12] MEDS ORDERED: methylPREDNISolone 4 MG TABLET (DAY#6, ACB) PO ONE (07:30)
[2022-02-12 07:33] LABS: HEMATOCRIT 29.3 % (36.7-47.1); MEAN CORPUSCULAR HEMOGLOBIN 30.3 uug (23.8-33.4); MEAN CORPUSCULAR VOLUME 91.9 fL (73.0-96.2); PLATELET COUNT (AUTO) 199 K/uL (152-348)
[2022-02-12] MEDS: INSULIN LISPRO 1000 UNITS/10 ML VIAL(HUMALOG) SQ SCH ×3 (07:41→17:02)
[2022-02-12 07:51] LABS: CARBON DIOXIDE 23 mmol/L (21-32); CHLORIDE 104 mmol/L (98-107); CREATININE 1.4 mg/dL (0.6-1.3); GLUCOSE 122 mg/dL (74-106); PHOSPHOROUS 3.6 mg/dL (2.5-4.9); POTASSIUM 4.3 mmol/L (3.5-5.1); UREA NITROGEN, BLOOD 28 mg/dL (7-18)
[2022-02-12 08:00] VITALS: BP 131/61
[2022-02-12] MEDS: TAMSULOSIN HCL 0.4 MG CAP.SR.24H PO SCH (08:46)
[2022-02-12] MEDS: ASPIRIN 81 MG TAB.CHEW PO SCH (08:47)
[2022-02-12] MEDS: FERROUS SULFATE 325 MG TABEC PO SCH (08:47)
[2022-02-12] MEDS: METOPROLOL SUCCINATE XL 25 MG TAB.SR.24H PO SCH (08:48)
[2022-02-12] MEDS: MIRALAX 17 GM POWD.PACK PO SCH (09:25)
[2022-02-12] MEDS: NICOTINE 7 MG/24HR PATCH TD SCH (09:25)
[2022-02-12] MEDS: GLUCERNA SHAKE 237 ML CAN PO SCH ×2 (09:25→17:06)
[2022-02-12] MEDS: FLUTICASONE/VILANTEROL 1 EACH BLST.W.DEV INH SCH (09:28)
[2022-02-12] MEDS: INSULIN REGULAR, HUMAN 300 UNIT/3 ML VIAL SQ PRN ×2 (11:40→17:05)
[2022-02-12 14:54] VITALS: BP 108/62
--- NOTE | 2022-02-12 15:45 | NUR ---
INTERDISCIPLINARY TEAM CONFERENCE
--- NOTE | 2022-02-12 15:53 | NUR ---
0900-Patient A/Ox4, scheduled/due medications administered as ordered with no ASE noted. Oral fluids taken well, patient denies any discomfort.
--- NOTE | 2022-02-12 15:55 | NUR ---
Patient with orders to be release home 02/13/22.
--- NOTE | 2022-02-12 18:40 | NUR ---
PATIENT IN BED, AWAKE, WATCHING TV. PATIENT TOLERATED MEALS AND FLUIDS WELL. FS FOR BS CHECKS DONE ORDERED WITH ROUTINE HUMALOG 6 UNITS AC MEALS AND HUMULIN R PER SS ORDERED BY MD. NO S/S OF HYPO/HYPERGLYCEMIA NOTED. ASSIST WITH ADLS AND NEEDED. ALL NEEDS ANTICIPATED AND MET.
[2022-02-12 20:04] VITALS: BP 119/60
[2022-02-12] MEDS: ESCITALOPRAM OXALATE 10 MG TABLET PO SCH (20:12)
[2022-02-12] MEDS: ATORVASTATIN 40 MG TABLET PO SCH (20:12)
[2022-02-12] MEDS: INSULIN GLARGINE,HUM 300 UNITS/3 ML CARTRIDGE SQ SCH (20:17)
[2022-02-13 04:09] VITALS: BP 118/62
[2022-02-13] MEDS: BLOOD SUGAR DIAGNOSTIC 1 EACH STRIP VI SCH ×2 (06:13→11:57)
[2022-02-13] MEDS: PANTOPRAZOLE SODIUM 40 MG TABLET.DR PO SCH (06:13)
[2022-02-13 07:44] VITALS: BP 100/58
[2022-02-13] MEDS: INSULIN LISPRO 1000 UNITS/10 ML VIAL(HUMALOG) SQ SCH ×2 (08:20→11:56)
[2022-02-13] MEDS: NICOTINE 7 MG/24HR PATCH TD SCH (08:22)
[2022-02-13] MEDS: FERROUS SULFATE 325 MG TABEC PO SCH (08:23)
[2022-02-13] MEDS: ASPIRIN 81 MG TAB.CHEW PO SCH (08:23)
[2022-02-13] MEDS: TAMSULOSIN HCL 0.4 MG CAP.SR.24H PO SCH (08:23)
[2022-02-13] MEDS: GLUCERNA SHAKE 237 ML CAN PO SCH (08:26)
[2022-02-13 09:00] VITALS: BP 100/58
[2022-02-13] MEDS: METOPROLOL SUCCINATE XL 25 MG TAB.SR.24H PO SCH (09:00)
[2022-02-13] MEDS: MIRALAX 17 GM POWD.PACK PO SCH (09:03)
[2022-02-13] MEDS: FLUTICASONE/VILANTEROL 1 EACH BLST.W.DEV INH SCH (09:04)
[2022-02-13] MEDS: INSULIN REGULAR, HUMAN 300 UNIT/3 ML VIAL SQ PRN (11:59)
--- NOTE | 2022-02-13 13:54 | NUR ---
1:45PM-PATIENT WAS DISCHARGED HOME WITH & CG, MEDICATION PROFILE, INSTRUCTIONS AND EDUCATION PROVIDED TO CG/ WITH GOOD VERBAL DEMONSTRATION. ALL PERTINENT PAPERWORK, MED LIST/Rx PROVIDED. PATIENT ATE LUNCH PRIOR LEAVING, [place]. WELL NO C/O PAIN OR ANY DISCOMFORT, SOUNDS APPRECIATIVE TO HAVE STAYED AT HOSPITAL AND HAPPY TO BE NOW GOING HOME. BELONGINGS TAKEN.
== END 2022-02-13 13:45 | disposition home health service (06) | DRG 190 ==
LOC: TELE3 18:41 → OBSVTOIN 18:41
PROVIDERS: ADMIT Physical Medicine & Rehabilitation Pain Medicine; ATTEND Physical Medicine & Rehabilitation Pain Medicine
DX: J44.1 Chronic obstructive pulmonary disease with (acute) exacerbation (principal); A41.9 Sepsis, unspecified organism; E43 Unspecified severe protein-calorie malnutrition; N17.0 Acute kidney failure with tubular necrosis; K26.4 Chronic or unspecified duodenal ulcer with hemorrhage; D68.59 Other primary thrombophilia; N39.0 Urinary tract infection, site not specified; E87.1 Hypo-osmolality and hyponatremia; R53.1 Weakness; D64.9 Anemia, unspecified; E11.22 Type 2 diabetes mellitus with diabetic chronic kidney disease; N18.9 Chronic kidney disease, unspecified; E11.51 Type 2 diabetes mellitus with diabetic peripheral angiopathy without gangrene; E11.65 Type 2 diabetes mellitus with hyperglycemia; E78.5 Hyperlipidemia, unspecified; F32.9 Major depressive disorder, single episode, unspecified; I12.9 Hypertensive chronic kidney disease with stage 1 through stage 4 chronic kidney disease, or unspecified chronic kidney disease; I25.10 Atherosclerotic heart disease of native coronary artery without angina pectoris; I25.2 Old myocardial infarction; Z95.5 Presence of coronary angioplasty implant and graft; Z87.891 Personal history of nicotine dependence; R62.7 Adult failure to thrive; N28.1 Cyst of kidney, acquired; M43.16 Spondylolisthesis, lumbar region; M19.90 Unspecified osteoarthritis, unspecified site; I71.4 Abdominal aortic aneurysm, without rupture; K21.9 Gastro-esophageal reflux disease without esophagitis; D75.839 Thrombocytosis, unspecified; E83.42 Hypomagnesemia; K44.9 Diaphragmatic hernia without obstruction or gangrene; K57.90 Diverticulosis of intestine, part unspecified, without perforation or abscess without bleeding; K76.0 Fatty (change of) liver, not elsewhere classified; K80.20 Calculus of gallbladder without cholecystitis without obstruction; Z90.79 Acquired absence of other genital organ(s); Z79.899 Other long term (current) drug therapy; R91.1 Solitary pulmonary nodule; S27.321D Contusion of lung, unilateral, subsequent encounter; X58.XXXD Exposure to other specified factors, subsequent encounter; Z99.3 Dependence on wheelchair
CPT/HCPCS: 36415; 83735; 84100; 85025; 97535-GO-CO; A9150; J1815; J3475; J7509